=== PATIENT | female | born 1980 | race Caucasian/White ===

== ENCOUNTER 2019-01-12 20:20 | Emergency (ER) | payer OTHER ==
[~2019-01-12] VITALS: Ht 170.2 cm; Wt 88.6 kg
[2019-01-12 20:25] VITALS: TEMP 97.7
[2019-01-12] MEDS ORDERED: PRIL40 PO (21:22)
[2019-01-12] MEDS ORDERED: LOW-OGESTREL 281 TAB PO (21:22)
[2019-01-12] MEDS ORDERED: WELLBUTRIN SR100 M1 PO (21:23)
[2019-01-12] MEDS ORDERED: MULTI VITAMINS1 TAB PO (21:24)
[2019-01-12] MEDS ORDERED: PREDNISONE20 MG PO (22:15)
[2019-01-12 22:34] VITALS: BP 142/96; PULSE 81
== END 2019-01-12 22:35 | disposition home or self-care (01) ==
LOC: COL.ER 20:20
DX: T78.1XXA Other adverse food reactions, not elsewhere classified, initial encounter (principal); K21.9 Gastro-esophageal reflux disease without esophagitis; Z87.891 Personal history of nicotine dependence
CPT/HCPCS: J1200; J2405; J2930; J7030